=== PATIENT | male | born 1955 | race African-American/Black ===

== ENCOUNTER 2021-05-22 23:29 | Emergency (ER) | payer OTHER ==
[~2021-05-22] VITALS: Ht 172.7 cm; Wt 80.0 kg
[2021-05-23 00:06] VITALS: BP 133/40
[2021-05-23] MEDS ORDERED: PROT20 MT (00:25)
== END 2021-05-23 02:02 | disposition home or self-care (01) ==
LOC: ER 23:29
DX: K29.70 Gastritis, unspecified, without bleeding (principal)
CPT/HCPCS: 93005; 99283